=== PATIENT | female | born 1985 | race Caucasian/White ===

== ENCOUNTER 2018-08-12 18:42 | Emergency (ER) | payer SELFPAY ==
[~2018-08-12] VITALS: Ht 162.6 cm; Wt 81.6 kg
[2018-08-12] MEDS ORDERED: HYDROcodone/APAP 5/325MG 1 TAB TABLET PO ONE (20:45)
[2018-08-12] MEDS ORDERED: KETOROLAC 60 MG/2 ML VIAL. IM ONE (20:45)
[2018-08-12 20:47] LABS: BILIRUBIN,URINE NEGATIVE (NEG); CLARITY,URINE TURBID; NITRITE,URINE NEGATIVE (NEG); PH,URINE 6.5; PROTEIN,URINE 30 mg/dL (NEG-TRACE)
[2018-08-12 20:50] LABS: COLOR,URINE PINK
[2018-08-12 20:52] LABS: BACTERIA,URINE FEW /HPF (0-FEW); RBC,URINE TNTC /HPF (0-2); SQUAMOUS EPITHELIAL CELL,UR FEW /LPF
--- NOTE | 2018-08-12 20:54 | PHYS DOC ---
Past Medical History Past Medical History: No Pertinent History Past Surgical History: Alcohol Use: None Drug Use: None Adult General Chief Complaint Chief Complaint: MENSTRUAL PAIN/[facility] HPI Patient is a 32 year old female presents to the ED complaining of menstrual cramps times one day. Patient states that her period was a week late this month. States that she is having lower abdominal cramping. States she has not taken any medication outpatient [id number]. Describes the pain as crampy. Rates the pain as 6 out of 10. Denies dysuria, hematuria, diarrhea, nausea/ vomiting, chest pain, shortness of breath, lower leg swelling, vaginal discharge or fever. Review of Systems Review of Systems Constitutional: Denies fever or chills [] Eyes: Denies change in visual acuity, redness, or eye pain [] HENT: Denies nasal congestion or sore throat [] Respiratory: Denies cough or shortness of breath [] Cardiovascular: No additional information not addressed in HPI [] GI: complains of abdominal pain. Denies, nausea, vomiting, bloody stools or diarrhea [] : Denies dysuria or hematuria [] Musculoskeletal: Denies back pain or joint pain [] Integument: Denies rash or skin lesions [] Neurologic: Denies headache, focal weakness or sensory changes [] All other systems were reviewed and found to be within normal limits, except as documented in this note. Current Medications Current Medications Current Medications Medications (Trade) Dose Ordered Sig/Ant Start Time Stop Time Status Last Admin Dose Admin Acetaminophen/ Hydrocodone Bitart (Lortab 5/325) 1 tab 1X ONCE 08/12/18 20:45 08/12/18 20:46 DC Ketorolac Tromethamine (Toradol Im) 60 mg 1X ONCE 08/12/18 20:45 08/12/18 20:46 DC Allergies Allergies Allergies Coded Allergies Type Severity Reaction Last Updated Verified diphenhydramine Allergy Intermediate 11/23/13 No Physical Exam Physical Exam Constitutional: Well developed, well nourished, no acute distress, non-toxic appearance. [] HENT: Normocephalic, atraumatic Eyes: PERRLA, EOMI, conjunctiva normal, no discharge. [] Neck: Normal range of motion, no tenderness, supple, no stridor. [] Cardiovascular:Heart rate regular rhythm, no murmur [] Lungs & Thorax: Bilateral breath sounds clear to auscultation [] Abdomen: Bowel sounds normal, soft, no tenderness, no masses, no pulsatile masses. [] Skin: Warm, dry, no erythema, no rash. [] Back: No tenderness, no CVA tenderness. [] Extremities: No tenderness, no cyanosis, no clubbing, ROM intact, no edema. [] Neurologic: Alert and oriented X 3, normal motor function, normal sensory function, no focal deficits noted. [] Psychologic: Affect normal, judgement normal, mood normal. [] Current Patient Data Vital Signs Vital Signs Date Time Temp Pulse Resp B/P (MAP) Pulse Ox O2 Delivery O2 Flow Rate FiO2 08/12/18 20:57 98.1 73 16 180/101 (127) 95 Room Air 98.1 Lab Values Laboratory Tests Test 08/12/18 20:35 08/12/18 20:40 Urine Collection Type Unknown Urine Color [place] Urine Clarity Turbid Urine pH 6.5 Urine Specific [place] 1.020 Urine Protein 30 mg/dL (NEG-TRACE) Urine Glucose (UA) Negative mg/dL (NEG) Urine Ketones (Stick) Negative mg/dL (NEG) Urine Blood Large (NEG) Urine Nitrite Negative (NEG) Urine Bilirubin Negative (NEG) Urine Urobilinogen Dipstick 1.0 mg/dL (0.2 mg/dL) Urine Leukocyte Esterase Small (NEG) Urine RBC Tntc /HPF (0-2) Urine WBC 5-10 /HPF (0-4) Urine Squamous Epithelial Cells Few /LPF Urine Bacteria Few /HPF (0-FEW) Urine Mucus Slight /LPF POC Urine HCG, Qualitative Hcg negative (Negative) EKG EKG [] Radiology/Procedures Radiology/Procedures [] Course & Med Decision Making Course & Med Decision Making Pertinent Labs and Imaging studies reviewed. (See chart for details) []Discussed lab findings with patient. Patient's symptoms consistent with menstrual cramps. Patient's pain improved in the ED. Discussed symptomatic treatment and outpatient medications. Will prescribe Naprosyn outpatient. Will also treat for possible urinary tract infection with Macrobid outpatient. Discussed follow-up and reasons to return to the ED. Provided contact information/education. Patient understands and agrees with plan. Dragon Disclaimer Dragon Disclaimer This electronic medical record was generated, in whole or in part, using a voice recognition dictation system. Departure Departure Impression: Primary Impression: Menstrual cramps Additional Impression: Urinary tract infection Disposition: 01 HOME, SELF-CARE Condition: IMPROVED Referrals: NO PCP (PCP) DOREEN DAIGLE Jr, MD Patient Instructions: Dysmenorrhea, Urinary Tract Infection Scripts Naproxen (NAPROSYN) 500 Mg Tablet 1 TAB PO BID for 7 Days, #14 TAB 1 Refill Prov: ALEXANDER ROJO 08/12/18 Nitrofurantoin Monohyd/M-Cryst (MACROBID 100 MG CAPSULE) 100 Mg Capsule 1 CAP PO BID, #14 CAP Prov: ALEXANDER ROJO 08/12/18 Problem Qualifiers ALEXANDER ROJO Aug 12, 2018 20:54
[2018-08-12 20:57] VITALS: BP 180/101
[2018-08-12] MEDS ORDERED: NITR100C62 PO (21:13)
[2018-08-12] MEDS ORDERED: NAPR-683 PO (21:13)
== END 2018-08-12 21:31 | disposition home or self-care (01) ==
LOC: ER 18:42
DX: N39.0 Urinary tract infection, site not specified (principal); N94.6 Dysmenorrhea, unspecified; Z98.890 Other specified postprocedural states; Z88.8 Allergy status to other drugs, medicaments and biological substances
CPT/HCPCS: 81001; 81025; 96372; 99283; J1885